=== PATIENT | female | born 1980 | race Caucasian/White ===

== ENCOUNTER 2020-08-04 14:50 | Emergency (ER) | payer OTHER ==
[~2020-08-04 14:50] MED LIST: BENTYL 20MG TAB20 MG PO; IBUPROFEN600 MG PO; KEFLEX500 MG PO; LODINE CAP 300300 MG PO; MACROBID 100 M100 MG PO; OMNICEF 300 MG300 MG PO; ZESTRIL20 MG PO; ZOFRAN ODT 4 MG4 MG SL
== END 2020-08-04 17:31 | disposition home or self-care (01) ==
LOC: ER1 14:50
DX: M25.572 Pain in left ankle and joints of left foot (principal); I10 Essential (primary) hypertension; F17.210 Nicotine dependence, cigarettes, uncomplicated; Z79.899 Other long term (current) drug therapy
CPT/HCPCS: 73590; 73610; 73630; 99283

== ENCOUNTER 2020-11-01 17:27 | Emergency (ER) | payer OTHER ==
[2020-11-01 18:22] LABS: RED BLOOD COUNT 3.96 M/UL (4.00-5.10)
[2020-11-01 18:46] LABS: BUN/CREATININE RATIO 17 (0-10)
== END 2020-11-01 21:35 | disposition left against medical advice (07) ==
LOC: ER1 17:27
PROVIDERS: Physician Assistant
DX: T14.8XXA Other injury of unspecified body region, initial encounter (principal); L55.9 Sunburn, unspecified; E86.0 Dehydration; I10 Essential (primary) hypertension; F17.210 Nicotine dependence, cigarettes, uncomplicated
CPT/HCPCS: 70450; 71045; 80053; 82550; 82553; 83874; 84484; 85025; 93005; G0480; J7030

== ENCOUNTER 2020-11-02 01:38 | Emergency (ER) | payer OTHER | END 2020-11-02 03:35 | disposition home or self-care (01) | LOC: ER1 01:38 | DX: M25.571 Pain in right ankle and joints of right foot (principal); R51.9 Headache, unspecified | CPT/HCPCS: 73610; 99284 ==